=== PATIENT | female | born 1965 | race Caucasian/White ===

== ENCOUNTER 2018-12-13 06:14 | Day surgery (SDC) | payer OTHER ==
[2018-12-11 15:33] VITALS: Ht 152.4 cm; Wt 141.3 kg
[2018-12-13] VITALS (13 sets, daily range): BP systolic 115–134; BP diastolic 58–94; PULSE 62–78; RESP 13–20
[~2018-12-13] VITALS: Ht 152.4 cm; Wt 141.3 kg
[~2018-12-13 06:14] MED LIST: ALPR2TAB PO; LORA-444 PO; METF100010 PO; OMEP20CA17 PO; SERT100T PO; ZOLP12.52 PO
[2018-12-13] MEDS ORDERED: BETAMET NA PHOS/AC (6 MG/ML) 5ML INJ ONE (07:40)
[2018-12-13] MEDS ORDERED: BUPIVACAINE 0.25% (MPF) 30 ML INJ ONE (07:40)
[2018-12-13] MEDS ORDERED: POLYMYXIN/BACITRACIN 1L IRRIG ONE (07:40)
[2018-12-13] MEDS ORDERED: LIDOCAINE 2% (MDV) 20 ML INJ ONE (07:40)
[2018-12-13] MEDS ORDERED: NEOMYC/POLYMYX/BACIT 30 GM OINT ONE (07:46)
[2018-12-13] MEDS ORDERED: MEPERIDINE 100 MG INJ ONE (08:03)
[2018-12-13] MEDS ORDERED: PROPOFOL 20 ML ONE (08:03)
[2018-12-13] MEDS ORDERED: LIDOCAINE 2% (SDV) 5 ML INJ ONE (08:03)
[2018-12-13] MEDS ORDERED: CEFAZOLIN 1 GM INJ ONE (08:32)
[2018-12-13] MEDS ORDERED: MIDAZOLAM 1 MG/ML 2 ML INJ ONE ×2 (08:32→08:55)
[2018-12-13] MEDS ORDERED: ROPIVACAINE 0.5 % 30 ML VIAL ONE (08:35)
[2018-12-13] MEDS ORDERED: hydrALAzine 20 MG INJ IV PRN (09:30)
[2018-12-13] MEDS ORDERED: DIPHENHYDRAMINE 50 MG INJ IV PRN (09:30)
[2018-12-13] MEDS ORDERED: EPHEDrine 25 MG/5 ML SYG IV PRN (09:30)
[2018-12-13] MEDS ORDERED: METOCLOPRAMIDE 10 MG INJ IV PRN (09:30)
[2018-12-13] MEDS ORDERED: OXYCODONE/ACETAMINOPHEN (5/325) TAB PO PRN ×2 (09:30)
[2018-12-13] MEDS ORDERED: MIDAZOLAM 1 MG/ML 2 ML INJ IV PRN (09:30)
[2018-12-13] MEDS ORDERED: MEPERIDINE 25 MG INJ IV PRN (09:30)
[2018-12-13] MEDS ORDERED: HYDROmorphONE 1 MG/5 ML IV SYRINGE IV PRN ×3 (09:30)
[2018-12-13] MEDS ORDERED: LABETALOL HCL 20MG INJ IV PRN (09:30)
[2018-12-13] MEDS ORDERED: ONDANSETRON 4 MG INJ IV PRN (09:30)
== END 2018-12-13 11:43 | disposition home or self-care (01) ==
LOC: SDS 06:14
PROVIDERS: ATTEND Orthopaedic Surgery
DX: G56.01 Carpal tunnel syndrome, right upper limb (principal); M65.4 Radial styloid tenosynovitis [de Quervain]; E11.9 Type 2 diabetes mellitus without complications; Z79.84 Long term (current) use of oral hypoglycemic drugs
CPT/HCPCS: 25000; 64721; 82962; 88304; J0690; J1170; J2175; J2250; J2405; J2795; J0702